=== PATIENT | male | born 1965 | race Caucasian/White ===

== ENCOUNTER 2020-12-14 04:59 | Inpatient (IN) | payer OTHER ==
[~2020-12-14] VITALS: Ht 193 cm; Wt 110.9 kg
--- NOTE | 2020-12-14 05:20 | NUR ---
PT C/O OF RIGHT LEEG PAIN THAT APPEARS SWOLLEN, RED, AND PATCHES OF DRY SKIN THAT ITCHES. PT TAKING MEDICATIONS FOR LEG. STATES HE HAS BEEN SEEN AT 7 DIFFERENT HOSPITALS AND CLINICS. DENIES FEVER/CHILLS, N/V ATTACHED TO MONITORS. NADN. BED IN LOW POSITION, RAILS ENGAGED, CALL LIGHT WITHIN REACH. TM
[2020-12-14] MEDS ORDERED: methylPREDNISolone SOD SUCC 125 MG/2 ML IVPush ONE (05:30)
[2020-12-14] MEDS ORDERED: SODIUM CHLORIDE 0.9% 1,000ML IVBOLUS ONE (05:30)
[2020-12-14] MEDS ORDERED: VANCOMYCIN PER PHARMACY MC ONE (05:30)
[2020-12-14] MEDS ORDERED: CLIN300C9 PO (05:44)
[2020-12-14] MEDS ORDERED: FLUC100T4 PO (05:44)
[2020-12-14] MEDS ORDERED: methylPREDNISolone SOD SUCC 125 MG/2 ML ONE (05:50)
[2020-12-14] MEDS ORDERED: VANCOMYCIN 2,500 MG in SODIUM CHLORIDE 0.9% 500 ML IV ONE (06:00)
--- NOTE | 2020-12-14 06:09 | NUR ---
Patient is resting comfortably in bed WATCHING TV. Bed in lowest, rails engaged, call light on lap. Vital Signs within normal limits. WCTM. TOLLERATING ALL INTERVENTIONS WELL.
[2020-12-14 06:10] LABS: BASOPHILS % (AUTO) 1 % (0-1); EOSINOPHILS % (AUTO) 6 % (1-7); LYMPHOCYTES % (AUTO) 24 % (22-44); MEAN CORPUSCULAR HGB CONC 34.8 g/dL (33.2-36.2); MEAN PLATELET VOLUME 8.5 fL (7.4-10.4); MONOCYTES % (AUTO) 9 % (2-9); NEUTROPHILS % (AUTO) 60 % (42-75); PLATELET COUNT 297 x10^3/uL (130-400); RED BLOOD COUNT 5.13 x10^6/uL (4.38-5.82); RED CELL DISTRIBUTION WIDTH 13.9 % (9.4-14.8)
[2020-12-14 06:16] LABS: ALANINE AMINOTRANSFERASE 33 U/L (12-78); ALBUMIN 3.5 g/dL (3.4-5.0); ANION GAP 6 mmol/L (5-15); CALCIUM 8.6 mg/dL (8.5-10.1); CHLORIDE 107 mmol/L (98-107); CREATININE 1.24 mg/dL (0.7-1.3)
[2020-12-14 06:18] LABS: ALKALINE PHOSPHATASE 89 U/L (45-117); BILIRUBIN,TOTAL 0.3 mg/dL (0.2-1.0); TOTAL PROTEIN 7.1 g/dL (6.4-8.2)
--- NOTE | 2020-12-14 06:29 | NUR ---
US AT BEDSIDE. PT CONDITION UNCHANGED. NADN. TORRES
--- NOTE | 2020-12-14 06:56 | NUR ---
REPORT RECEIVED FROM LUCRECIA RILEY
--- NOTE | 2020-12-14 07:05 | NUR ---
GAVE REPORT TO ZULY RILEY. TRANSFER OF CARE
--- NOTE | 2020-12-14 07:12 | NUR ---
PT SITTING UP IN BED, A&O, RESPS EVEN AND UNLABORED, VSS, NADN. CALL LIGHT IN REACH.
[2020-12-14 08:05] LABS: HCT (SEDRATE) 47.1 % (39.2-51.8)
--- NOTE | 2020-12-14 08:15 | NUR ---
report given to receiving summer kaplan
--- NOTE | 2020-12-14 08:29 | NUR ---
pt transferred to floor accompanied by edt
[2020-12-14 08:38] VITALS: BP 132/84
[2020-12-14] MEDS ORDERED: MULT9LIQ9 PO (08:57)
[2020-12-14] MEDS ORDERED: HYDROcodone/APAP 5/325 TABLET PO PRN (10:30)
[2020-12-14] MEDS ORDERED: DOCUSATE 100 MG CAPSULE PO PRN (10:30)
[2020-12-14] MEDS ORDERED: VANCOMYCIN PER PHARMACY MC PRN (10:30)
[2020-12-14] MEDS ORDERED: ONDANSETRON 2MG/ML, 2ML IVPush PRN (10:30)
[2020-12-14] MEDS ORDERED: ENALAPRILAT 1.25 MG/ML, 2ML IVPush PRN (10:30)
[2020-12-14] MEDS ORDERED: BISACODYL 10 MG SUPP PR PRN (10:30)
[2020-12-14] MEDS ORDERED: POLYETHYLENE GLYCOL 17 GM PACKET PO PRN (10:30)
[2020-12-14] MEDS ORDERED: ONDANSETRON ODT 4 MG PO PRN (10:30)
[2020-12-14] MEDS ORDERED: LABETALOL 5MG/ML, 20ML IVPush PRN (10:30)
[2020-12-14] MEDS ORDERED: ACETAMINOPHEN 325 MG TABLET PO PRN (10:30)
[2020-12-14] MEDS ORDERED: PHARMACOKINETIC CONSULTATION MC ONE (11:00)
[2020-12-14] MEDS ORDERED: PHARMACOKINETIC MONITORING MC PRN (11:00)
[2020-12-14 11:11] LABS: D-DIMER (DIC) 0.52 ug/mlFEU (0.00-0.52); PROTIME 10.8 Seconds (9.6-11.5)
[2020-12-14] MEDS: NICOTINE 14MG/24 HR PATCH.TD24 TD SCH ×2 (11:30→19:42)
[2020-12-14] MEDS: SODIUM CHLORIDE 0.9% 1,000 ML IV SCH ×2 (11:52→22:54)
[2020-12-14] MEDS: GABAPENTIN 100 MG CAPSULE PO SCH ×3 (11:52→19:42)
[2020-12-14 12:14] LABS: MICROSCOPIC NOT IND
[2020-12-14 14:03] VITALS: BP 143/88
[2020-12-14] MEDS ORDERED: KETOROLAC 30 MG/1 ML IVPush PRN (15:30)
[2020-12-14] MEDS: CEFTRIAXONE 1,000 MG in DEXTROSE 5% 50 ML IVPB SCH (16:31)
[2020-12-14] MEDS: ENOXAPARIN 40 MG/0.4 ML SQ SCH (16:31)
[2020-12-14 19:57] VITALS: BP 123/70
[2020-12-14] MEDS ORDERED: VANCOMYCIN 1,900 MG in SODIUM CHLORIDE 0.9% 250 ML IV SCH (23:30)
[2020-12-15 05:36] LABS: BASOPHILS % (AUTO) 0 % (0-1); EOSINOPHILS % (AUTO) 1 % (1-7); LYMPHOCYTES % (AUTO) 15 % (22-44); MEAN CORPUSCULAR HEMOGLOBIN 31.3 pg (27.5-34.5); MEAN CORPUSCULAR HGB CONC 34.1 g/dL (33.2-36.2); MEAN PLATELET VOLUME 8.4 fL (7.4-10.4); MONOCYTES % (AUTO) 8 % (2-9); NEUTROPHILS % (AUTO) 76 % (42-75); PLATELET COUNT 253 x10^3/uL (130-400); RED BLOOD COUNT 4.89 x10^6/uL (4.38-5.82); RED CELL DISTRIBUTION WIDTH 13.9 % (9.4-14.8)
[2020-12-15 05:41] LABS: ANION GAP 4 mmol/L (5-15); CALCIUM 8.4 mg/dL (8.5-10.1); CHLORIDE 110 mmol/L (98-107)
[2020-12-15 05:42] LABS: CREATININE 0.65 mg/dL (0.7-1.3)
[2020-12-15 07:37] VITALS: BP 123/77
[2020-12-15] MEDS: SODIUM CHLORIDE 0.9% 1,000 ML IV SCH ×2 (09:45→23:40)
[2020-12-15] MEDS: GABAPENTIN 100 MG CAPSULE PO SCH ×3 (09:45→20:29)
[2020-12-15 12:45] VITALS: BP 121/73
[2020-12-15] MEDS ORDERED: GADOTERATE 10 MMOL/20ML SYR ONE (15:17)
[2020-12-15] MEDS: VANCOMYCIN 1,700 MG in SODIUM CHLORIDE 0.9% 250 ML IV SCH (15:39)
[2020-12-15] MEDS ORDERED: BUPIVACAINE/PF 0.25% ONE (16:44)
[2020-12-15] MEDS: CEFTRIAXONE 1,000 MG in DEXTROSE 5% 50 ML IVPB SCH (17:10)
[2020-12-15] MEDS: ENOXAPARIN 40 MG/0.4 ML SQ SCH (17:11)
[2020-12-15 18:34] VITALS: BP 144/82
[2020-12-16 01:33] VITALS: BP 133/76
[2020-12-16] MEDS: VANCOMYCIN 1,700 MG in SODIUM CHLORIDE 0.9% 250 ML IV SCH (04:03)
[2020-12-16 05:42] LABS: BASOPHILS % (AUTO) 1 % (0-1); EOSINOPHILS % (AUTO) 3 % (1-7); LYMPHOCYTES % (AUTO) 15 % (22-44); MEAN CORPUSCULAR HEMOGLOBIN 31.6 pg (27.5-34.5); MEAN CORPUSCULAR HGB CONC 34.4 g/dL (33.2-36.2); MEAN PLATELET VOLUME 8.3 fL (7.4-10.4); MONOCYTES % (AUTO) 9 % (2-9); NEUTROPHILS % (AUTO) 73 % (42-75); PLATELET COUNT 265 x10^3/uL (130-400); RED BLOOD COUNT 4.92 x10^6/uL (4.38-5.82); RED CELL DISTRIBUTION WIDTH 13.8 % (9.4-14.8)
[2020-12-16 05:45] LABS: ALBUMIN 2.9 g/dL (3.4-5.0); CALCIUM 8.3 mg/dL (8.5-10.1); CHLORIDE 107 mmol/L (98-107)
[2020-12-16 05:52] LABS: ALANINE AMINOTRANSFERASE 25 U/L (12-78); ALKALINE PHOSPHATASE 74 U/L (45-117); ANION GAP 5 mmol/L (5-15); BILIRUBIN,TOTAL 0.4 mg/dL (0.2-1.0); CREATININE 0.82 mg/dL (0.7-1.3); TOTAL PROTEIN 6.1 g/dL (6.4-8.2)
[2020-12-16 07:56] VITALS: BP 157/80
[2020-12-16] MEDS: GABAPENTIN 100 MG CAPSULE PO SCH ×3 (09:19→20:42)
[2020-12-16] MEDS: SODIUM CHLORIDE 0.9% 1,000 ML IV SCH ×2 (09:20→20:50)
[2020-12-16] MEDS: NICOTINE 14MG/24 HR PATCH.TD24 TD SCH ×2 (11:21→17:31)
[2020-12-16 13:28] VITALS: BP 136/79
[2020-12-16] MEDS: CEFAZOLIN PMX 1GM/50ML 50 ML IV SCH ×2 (15:31→22:40)
[2020-12-16] MEDS: ENOXAPARIN 40 MG/0.4 ML SQ SCH (17:21)
[2020-12-16 19:56] VITALS: BP 147/85
[2020-12-16] MEDS: AQUAPHOR NATURAL HEALING OINT 50GM TP SCH (21:00)
[2020-12-17 02:10] VITALS: BP 145/92
[2020-12-17] MEDS: SODIUM CHLORIDE 0.9% 1,000 ML IV SCH (06:00)
[2020-12-17] MEDS: CEFAZOLIN PMX 1GM/50ML 50 ML IV SCH (06:11)
[2020-12-17 06:50] VITALS: BP 139/96
[2020-12-17] MEDS: GABAPENTIN 100 MG CAPSULE PO SCH (08:26)
[2020-12-17] MEDS ORDERED: AMOX1TAB64 PO (09:26)
[2020-12-17] MEDS ORDERED: PRED20TA PO (09:28)
[2020-12-17 12:20] VITALS: BP 124/78
[2020-12-17] MEDS: AQUAPHOR NATURAL HEALING OINT 50GM TP SCH (12:45)
== END 2020-12-17 13:30 | disposition home or self-care (01) | DRG 603 ==
LOC: ED 07:16 → EDIP 07:49 → 4NE 08:31 → DCLOUNGE 12-17 13:20
PROVIDERS: ADMIT Internal Medicine; ATTEND Family Medicine
DX: L03.115 Cellulitis of right lower limb (principal); L30.9 Dermatitis, unspecified; I10 Essential (primary) hypertension; F17.210 Nicotine dependence, cigarettes, uncomplicated; Z79.899 Other long term (current) drug therapy; Z71.6 Tobacco abuse counseling
CPT/HCPCS: 36415; 71045; 80048; 80053; 81003; 83520; 83605; 84145; 85025; 85049; 85379; 85384; 85610; 85651; 85730; 86038; 86140; 86160; 86162; 86200; 86256; 86704; 86706; 86708; 86803; 87015; 87040; 87070; 87075; 87077; 87102; 87116; 87186; 87205; 87206; 87340; 87806; 88305; 88312; 93970; G0378; J0690; J0696; J1650; J3370; 86226; A9575; G0475; J2930; J7030; J7040; J7050; J7512